=== PATIENT | female | born 1995 | race Caucasian/White ===

== ENCOUNTER 2020-10-03 12:30 | Outpatient (RCR) | payer OTHER, SELFPAY ==
--- NOTE | 2020-08-24 14:25 | PTOPEVAL ---
PHYSICAL THERAPY EVALUATION AND PLAN OF CARE 08-24-20 Thank you for referring Sarah Lee to [facility].? She is scheduled to be seen for therapy? 1 x/week for 5 weeks. Please review, sign, date and return this plan of care ASHLEE. I agree with and certify that the following plan of care is medically necessary. Referring Physician Date Referring Provider: Lyndsay Howell NP *PT Outpatient Evaluation Document 08/24/20 13:30 KIET (Rec: 08/24/20 14:25 KIET [id number]) Outpatient Past Medical History Past Medical History Source of Past Medical History Patient Neurological History Hx Neurological Disorders No Significant History Cardiovascular History Hx Cardiac Disorders No Significant History Respiratory History Hx Respiratory Disorders No Significant History Gastrointestinal History Hx Gastrointestinal Disorders No Significant History Musculoskeletal History Hx Other Musculoskeletal Disorders Yes: R knee pain in high school with basketball/lilian slaughters Endocrine History Hx Endocrine Disorders No Significant History HEENT History Hx HEENT Disorders No Significant History Evaluation Information Problem Diagnosis R knee pain Onset Jul 04, 2020 Subjective Information chronic knee problems, since Query Text:As Reported By Patient/ about 14 years old, increase Family knee pain with 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 job of 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 weight lifting; Diagnostic Tests X-Rays For This Problem No MRI For This Problem No Other Tests For This Problem No Previous Treatments Previous Treatments For This Problem no recent PT for knee--long time ago in high school Prior Level of Function Activity Level (Last 3 Months) 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
--- NOTE | 2020-08-31 12:39 | PCPTNOTE ---
Patient called & cancelled scheduled appointment this date due to having to work.
--- NOTE | 2020-09-09 11:23 | PCPTNOTE ---
Patient called & cancelled scheduled appointment this date due to covid 19 exposure.
--- NOTE | 2020-09-16 11:07 | PCPTNOTE ---
Patient called & cancelled scheduled appointment this date due to still waiting for covid results.
--- NOTE | 2020-10-03 13:25 | PTOPEVAL ---
PHYSICAL THERAPY DISCHARGE 10-03-20 Refer to the clinical summary below, for her status with today's reevaluation, compared to the initial evaluation. The goals were partially achieved; discharge PT services. Thank you for referring Sarah Lee to [facility].? Please review, sign, date and return this discharge ASHLEE. I agree with and certify that the following plan of care is medically necessary. Referring Physician Date Referring Provider: Lyndsay Howell NP Document 10/03/20 12:37 KIET (Rec: 10/03/20 13:25 KIET [id number]) Assessment Status Discharge Subjective Information Sarah reports: knee is about Query Text:As Reported By Patient/ the same, hurts mostly with Family squatting- with reps and weights; sitting- if can stretch knee out/ straighten it, can sit as long as want to , but if in car, with knee bent and cannot stretch it out , 15- 20 min with reposition self; have been doing the stretches and they are helping ; am trying to return to the fitness center- doing everything except squats; on leg days- do bar whatley of 115# at shoulder height and squatting 5 reps; with lunges , feel like do not have any control; Pain Assessment Timing of Pain Assessment Timing of Pain Assessment Assessment Pain Scale Pain Scale Used Numeric (1 - 10) Self Report Pain Assessment Right Knee(s) Reported Pain Level 0 Pain Frequency Chronic,Intermittent Other Pain Description tightness, pulling at distal quad tendon; Lowest Pain Intensity 0 Greatest Pain Intensity 3 Pain Aggravating Factors Exercise/Activity,Sitting Other Pain Aggravating Factors end of work day; sit tolerance 15-20 min Pain Score Pain Score 0: Self Report Additional Pain Score Comments discussed with pt use of ice and patellar tendon strap; leukotape strips over patella- educated pt on application and applied with medial pull; issued names of tape for her to purchase and use PRN; monitor skin; WOMAC score of 15% limitation. Interventions Used Interventions Used By Clinicians Education,Exer
== END 2020-10-04 08:29 | disposition home or self-care (01) ==
LOC: ANHPT 12:30
PROVIDERS: PCP Nurse Practitioner Adult Health; Referring Provider Nurse Practitioner Adult Health; Visit Provider Nurse Practitioner Adult Health
DX: M25.561 Pain in right knee (principal)
CPT/HCPCS: 97110; 97161

== ENCOUNTER 2021-07-15 21:46 | Emergency (ER) | payer OTHER, SELFPAY ==
--- NOTE | ~2021-07-15 | CT_ITS ---
EXAMINATION: CT brain wo con EXAM DATE: 07/15/2021 22:24 INDICATION: head injury . TECHNIQUE: Spiral CT of the head was performed without contrast. Axial, coronal and sagittal images were reviewed. The dose-length product (DLP) for this examination was 605.33 mGy-cm. The exposure w as tailored according to patient size, and iterative reconstruction (ASIR) was used as additional dos e reduction technique. There is no prior study for comparison. FINDINGS: There is no acute intraparenchymal hemorrhage. No evidence of intraparenchymal brain mass lesion. No evidence of acute infarction. There is no mass effect or midline shift. The ventricles are normal in size. There are no extra-axial collections. There are no acute calvarial fractures. T he orbits are unremarkable. Soft tissue is unremarkable. The visualized sinuses and mastoid air rachel ls are well aerated. IMPRESSION: 1. No acute intracranial findings. Reviewed, dictated and finalized at location A. ET SUPERVISOR
[2021-07-15 21:52] VITALS: BP 115/69; PULSE 75; RESP 16; TEMP 36.2; O2SAT 100
--- NOTE | 2021-07-15 22:12 | ED.HEATRA ---
HPI - Head Injury General Chief complaint: Head Injury Stated complaint: think i have a concussion Time Seen by Provider: 07/15/21 22:00 Source: patient and RN notes reviewed Mode of arrival: ambulatory Limitations: no limitations History of Present Illness HPI Narrative: This is a 25 year old female who presents for evaluation of a head injury. She reports she was snowboarding today and she fell. She states she was going fast and she fell pretty hard on the ice. She denies LOC but she has been having persistent right posterior head and frontal headache. Related Data Home Medications Medication Instructions Recorded Confirmed No Home Medications 07/15/21 07/15/21 Allergies Allergy/AdvReac Type Severity Reaction Status Date / Time No Known Allergies Allergy Verified 07/15/21 21:52 Review of Systems Review of Systems: All systems reviewed & are unremarkable except as noted in HPI and below Constitutional: Constitutional: Denies chills and Denies fever(s) Eyes: Eyes: Denies change in vision and Denies photophobia Neurologic: Reports headache(s), Denies focal weakness and Denies numbness PMFSH Past Medical History Medical History (Updated 07/16/21 @ 00:00 by Denisse Evans) Patient denies medical problems Surgical History Surgical History (Updated 07/15/21 @ 22:22 by Cayla Nettles MD) No pertinent past surgical history Exam Const: General: no acute distress and alert Orientation/consciousness: patient oriented x3 HENMT: Head: normocephalic and atraumatic Face and sinus: normal facial exam and face symmetric Eyes: Pupils: Equal, round and reactive pupils present EOM: EOMs intact bilaterally Neck: Neck: normal visual inspection Chest: Chest palpation & inspection: normal inspection of the chest Resp: Effort & Inspection: normal respiratory effort and no retractions Auscultation: clear to auscultation bilaterally Cardio: Rate: regular rate Rhythm: regular rhythm Heart sounds: no murmurs GI: GI Palp: Yes Soft to palpation, No Tenderness to palpation present (GI) and No Guarding due to palpation present (GI) Auscultation: normal bowel sounds Skin: General skin exam: normal color Rashes: no rashes Neuro: General: patient oriented x3 and moves all extremities Cranial nerves: Yes CN's II-XII intact bilaterally Psych: Mental Status: mental status grossly normal Affect: normal affect Course Reevaluation(s) Reevaluation #1: Patient got CT brain based on mechanism according to Anthony Ct rule. I discussed with patient CT unremarkable. She is stable for discharge. Date: 07/15/21 Time: 23:14 Vital Signs Vital signs: Vital Signs Temperature 97.1 F L 07/15/21 21:52 Pulse Rate 75 07/15/21 21:52 Respiratory Rate 16 07/15/21 21:52 Blood Pressure 115/69 07/15/21 21:52 Pulse Oximetry 100 07/15/21 21:52 Temperature 97.1 F L 07/15/21 21:52 Pulse Rate 75 07/15/21 21:52 Respiratory Rate 16 07/15/21 21:52 Blood Pressure 115/69 07/15/21 21:52 Pulse Oximetry 100 07/15/21 21:52 MDM - Head Injury Imaging Data Radiologist's impression: CT head- No acute intracranial process. No skull fracture Discharge Plan Discharge Clinical Impression: Closed head injury Patient Disposition: Home, Self-Care Condition: Stable Instructions: Antibiotic Form, Concussion (ED), Head Injury (ED) Additional Instructions: Today you CT was normal. Take tylenol or ibuprofen for your pain. Prescriptions: No Action No Home Medications RF: 0 Follow-up/Referrals: Nathaly,DELTA Umana [Primary Care Provider] - [facility] [place] Coma Scale Eyes: Open Verbal: Oriented and Alert Motor: Follows Commands Mariah Coma Total Score: 15
== END 2021-07-15 23:18 | disposition home or self-care (01) ==
PROVIDERS: Emergency Provider General Practice; PCP Nurse Practitioner Adult Health
DX: S09.90XA Unspecified injury of head, initial encounter (principal); V00.311A Fall from snowboard, initial encounter; Y93.23 Activity, snow (alpine) (downhill) skiing, snowboarding, sledding, tobogganing and snow tubing
CPT/HCPCS: 70450; 99284

== ENCOUNTER → 2023-05-15 12:59 | Outpatient (CLI) | payer OTHER, SELFPAY ==
--- NOTE | ~2023-05-15 | US_ITS ---
US breast LT complete DATE: 05/15/2023 13:23 INDICATION: Left breast lump for a couple of months TECHNIQUE: Real-time and color flow imaging of complete right breast including all 4 quadrants and chicas bareolar area COMPARISON: None FINDINGS: Anterior clinical complaint at 6:00 in the periareolar area there is no suspicious mass or shadowing. There are occasional simple cysts, the largest situated at 5:00 3 cm the nipple, measuring 3.6 x 6.9 x 5.7 mm. No suspicious mass or suspicious shadowing is detected. IMPRESSION: BI-RADS Category 2: Benign Reviewed, dictated and finalized at Location A. Reviewed, dictated and finalized at location A. GER OPERATIONS RESEARCH IMPRESSION: BI-RADS Category 2: Benign
== END ==
PROVIDERS: PCP Obstetrics & Gynecology Gynecology; Visit Provider Obstetrics & Gynecology Gynecology
DX: N63.20 Unspecified lump in the left breast, unspecified quadrant (principal); R92.8 Other abnormal and inconclusive findings on diagnostic imaging of breast
CPT/HCPCS: 76641

== ENCOUNTER 2024-11-24 09:13 | Outpatient (CLI) | payer OTHER, SELFPAY ==
--- OUTSIDE RECORDS SUMMARY | 2024-11-24 09:18 | XMS_ITS | Referral Summary ---
Author Organization [facility] Address [address] [place] [address] Care Team Providers Care Welfare Aide Name Role Phone Vivien Weinstein MD Unavailable [phone] Unknown, Notinfile Primary Care Provider Unavail able Allergies No known active allergies Medications Vestura, 28, 3-0.02 mg per tablet Take 1 tablet by mouth daily 07/03/2023 Active Active Problems Problem Noted Date Diagnosed Date Knee pain 06/01/2014 Social History Tobacco Use Types Packs/Day Years Used Date Smoking Tobacco: Never Tobacco Cessation:Counseling Given: Not Answered AUDIT-C Answer Date Recorded Q1: How often do you have a drink containing alcohol? Never 07/22/2023 Q2: How many drinks containi ng alcohol do you have on a typical day when you are drinking? Patient does not drink Q3: How often do you have si x or more drinks on one occasion? 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
--- OUTSIDE RECORDS SUMMARY | 2024-11-24 09:18 | XMS_ITS | Clinical Summary ---
Author Organization [facility] Address [address] [place] [address] Care Team Providers Care Company Miner [employer]asting Name Role Phone Vivien Weinstein MD Unavailable [phone] Unknown, Notinfile Primary Care Provider Unavail able Allergies No known active allergies Medications Vestura, 28, 3-0.02 mg per tablet Take 1 tablet by mouth daily 07/03/2023 Active Active Problems Problem Noted Date Diagnosed Date Knee pain 06/01/2014 Family History Medical History Relation Name Comments Pancreatic cancer Paternal Grandfather Relation Name Status Comments Paternal Grandfather Social History Tobacco Use Types Packs/Day Years [...] on file 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 Gender Identity Not on file Sexual Orientation Not on file Obstetrics History Last Filed Vital Signs Vital Sign Reading Time Taken Comments Blood Pressure - - Pulse - - Temperature - - Respiratory Rate - - Oxygen Saturation - - Inhaled Oxygen Concentration - - Weight 68.9 kg (152 lb) 07/22/2023 8:02 AM MANAGER WATER WASTEWATER Height 157.5 cm (5' 2) 07/22/2023 8:02 AM MANAGER WATER WASTEWATER Body Mass Index 27.8 07/22/2023 8:02 AM MANAGER WATER WASTEWATER Plan of Treatment Health Maintenance Due Date Last Done Comments Cervical Cancer Screening 1997 Depression Screening 1997 Hepatitis C Screening 1997 DTaP/Tdap/Td Vaccine (1 - Tdap) 2008 Varicella Vaccines (1 of 2 - 13+ 2-dose series) 2010 Hepatitis B Screening 09/24/2015 Regular Well Visit/Exam 18-64 09/24/2015 Influenza Vaccine (Season Ended) 2025 HPV Vaccines Aged Out No longer eligi ble based on patient's age to complete this topic Pneumococcal vaccine <65 Aged Out No longer eligible based on patient's age to complete this topic Insurance [facility] H[facility]/O Address: [facility] [id number] [place] [id number] [facility] Care Teams Company Miner Blasting Relationship Specialty Start Date End Date Unknown, Notinfile PCP - General 11/11/23 Vivien Weinstein MD [address] [facility] [address] [place], [place] [id number] Referring Physician Gynecology 10/03/23
[2024-11-24 19:38] LABS: Hematocrit 44.3 % (37.0-47.0); Hemoglobin 13.5 g/dL (12.0-15.0); Mean Corpuscular HGB Conc 30.5 g/dl (32-36); Mean Corpuscular Hemoglobin 28.0 pg (26-34); Mean Corpuscular Volume 91.9 fl (80-100); Platelet Count Result 317 k/mm3 (150-375); Red Blood Count 4.82 M/mm3 (4.2-5.4); White Blood Count 7.1 K/mm3 (4.5-10.0)
[2024-11-24 19:40] LABS: Alanine Aminotransferase 17 U/L (6-35); Albumin Level 4.4 g/dL (3.5-5.1); Alkaline Phosphatase 39 U/L (38-126); Anion Gap 9 mmol/L (4-12); Aspartate Amino Transferase 41 U/L (14-36); Bilirubin,Total 0.4 mg/dL (0.2-1.3); Blood Urea Nitrogen 14 mg/dL (7-17); Calcium 9.7 mg/dL (8.4-10.2); Carbon Dioxide 24 mmol/L (22-30); Chloride 105 mmol/L (98-107); Cholesterol 260 mg/dL (0-200); Estimated Glomerular Filt Rate > 60; Glucose 76 mg/dL (65-110); HDL Direct 59 mg/dL; Potassium 4.6 mmol/L (3.4-5.0); Sodium 138 mmol/L (137-145); Total Protein 7.7 g/dL (6.3-8.2); Triglycerides 112 mg/dL (<150)
[2024-11-24 20:09] LABS: Thyroid Stimulating Hormone 1.010 uIU/mL (0.465-4.680)
== END 2024-11-24 09:14 | disposition home or self-care (01) ==
LOC: ANHBWCLAB 09:15
PROVIDERS: PCP Nurse Practitioner Adult Health; Visit Provider Nurse Practitioner Adult Health
DX: Z13.9 Encounter for screening, unspecified (principal)
CPT/HCPCS: 36415; 80053; 80061; 84443; 85027

== ENCOUNTER 2024-12-17 10:19 | Outpatient (CLI) | payer OTHER, SELFPAY ==
--- NOTE | ~2024-12-17 | US_ITS ---
EXAMINATION: US soft tissue abdomen DATE: 12/17/2024 10:34 INDICATION: Intra-abdominal and pelvic swelling, mass or lump at the umbilicus TECHNIQUE: Multiple grayscale and Doppler ultrasound images of the umbilical region of concern were o btained. COMPARISON: None FINDINGS: There is a small widemouthed fat-containing umbilical hernia extending through a 1.6 cm diameter os a nd which measures approximately 1.4 cm AP. No herniated bowel. IMPRESSION: 1. Small fat-containing umbilical hernia. Reviewed, dictated and finalized at location A.
== END 2024-12-17 10:20 | disposition home or self-care (01) ==
LOC: MICIMG 10:20
PROVIDERS: PCP Nurse Practitioner Adult Health; Visit Provider Nurse Practitioner Adult Health
DX: R19.00 Intra-abdominal and pelvic swelling, mass and lump, unspecified site (principal); K42.9 Umbilical hernia without obstruction or gangrene
CPT/HCPCS: 76705

== ENCOUNTER 2025-01-06 16:33 | Outpatient (RCR) | payer OTHER, SELFPAY ==
--- OUTSIDE RECORDS SUMMARY | 2025-01-04 16:31 | XMS_ITS | Clinical Summary ---
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 Gender Identity Not on file Sexual Orientation Not on file Obstetrics History Last Filed Vital Signs Vital Sign Reading Time Taken Comments Blood Pressure - - Pulse - - Temperature - - Respiratory Rate - - Oxygen Saturation - - Inhaled Oxygen Concentration - - Weight 68.9 kg (152 lb) 07/22/2023 8:02 AM KETTLE OPERATOR Height 157.5 cm (5' 2) 07/22/2023 8:02 AM KETTLE OPERATOR Body Mass Index 27.8 07/22/2023 8:02 AM KETTLE OPERATOR Plan of Treatment Health Maintenance Due Date Last Done Comments Cervical Cancer Screening 1997 Depression Screening 1997 Hepatitis C Screening 1997 DTaP/Tdap/Td Vaccine (1 - Tdap) 2008 Varicella Vaccines (1 of 2 - 13+ 2-dose series) 2010 Hepatitis B Screening 09/24/2015 Regular Well Visit/Exam 18-64 09/24/2015 HPV Vaccines (1 - 3-dose SCD M series) 2024 Influenza Vaccine (#1) 2025 Pneumococcal vaccine <65 Aged Out No longer eligible based on patient's age to complete this topic Insurance [facility] Care Teams Hospice Executive Director Relationship Specialty Start Date End Date Unknown, Notinfile PCP - General 11/11/23 Vivien Weinstein MD [address] [facility] [address] [place], [place] [id number] Referring Physician Gynecology 10/03/23
== END 2025-04-04 23:59 | disposition home or self-care (01) ==
LOC: ANHLAB 16:33
PROVIDERS: PCP Nurse Practitioner Adult Health; Visit Provider Obstetrics & Gynecology Gynecology
DX: O26.851 Spotting complicating pregnancy, first trimester (principal); Z3A.00 Weeks of gestation of pregnancy not specified
CPT/HCPCS: 36415; 84702; 86850; 86900; 86901

== ENCOUNTER 2025-01-07 12:50 | Outpatient (CLI) | payer OTHER, SELFPAY ==
--- NOTE | ~2025-01-07 | US_ITS ---
EXAMINATION: US OB <=14 wk fetus w TV DATE: 01/07/2025 13:21 INDICATION: Vaginal spotting. Gestational dating. TECHNIQUE: Real-time transabdominal and transvaginal obstetric ultrasound. FINDINGS: Comparison to 12/17/2024 The uterus measures 8.3 x 5.9 x 5 cm. There is an intrauterine gestational sac, with pole identified. The crown rump length measures 0.29 cm, which correlates with a estimated gestational age of 5 weeks 6 days. heart tones are identified measuring 114 BPM. There is a subchorionic hemorrhage measuring 1.5 x 0.4 x 0.8 cm. Right ovary within normal limits. IMPRESSION: 1. SL IUP with an EGA of 5 weeks, 6 days (EDC by current ultrasound of 09/03/2025). 2: Small subchorionic hemorrhage. Reviewed, dictated and finalized at location O. IMPRESSION: 1. SL IUP with an EGA of 5 weeks, 6 days (EDC by current ultrasound of ). 2: Small subchorionic hemorrhage.
== END 2025-01-07 12:51 | disposition home or self-care (01) ==
PROVIDERS: PCP Nurse Practitioner Adult Health; Visit Provider Obstetrics & Gynecology Gynecology
DX: O26.851 Spotting complicating pregnancy, first trimester (principal); Z3A.00 Weeks of gestation of pregnancy not specified
CPT/HCPCS: 76801; 76817

== ENCOUNTER 2025-01-26 10:23 | Outpatient (CLI) | payer OTHER, SELFPAY ==
--- NOTE | ~2025-01-26 | US_ITS ---
EXAMINATION: US OB limited DATE: 01/26/2025 10:43 INDICATION: Follow-up subchorionic hematoma TECHNIQUE: Real-time transabdominal obstetric ultrasound. FINDINGS: Ultrasound dated 01/07/2025 The uterus measures 9.7 x 6.1 x 7.9 cm. There is an intrauterine gestational sac, with pole identified. The crown rump length measures 2.14 cm.. heart tones are identified measuring 185 BPM. There is a small residual subchorionic hemorrhage.. There is a small hypoechoic mass measuring 2.9 cm at the uterine fundus, consistent with a fibroid. IMPRESSION: 1. SL IUP with an EGA of 8 weeks, 4 days (EDC by initial ultrasound of 09/03/2025). 2: Small residual subchorionic hemorrhage. 3: Uterine fibroid measuring 2.9 cm.. Reviewed, dictated and finalized at location O. IMPRESSION: 1. SL IUP with an EGA of 8 weeks, 4 days (EDC by initial ultrasound of ). 2: Small residual subchorionic hemorrhage. 3: Uterine fibroid measuring 2.9 cm..
== END 2025-01-26 10:24 | disposition home or self-care (01) ==
LOC: MICIMG 10:24
PROVIDERS: PCP Nurse Practitioner Adult Health; Visit Provider Obstetrics & Gynecology Gynecology
DX: O36.8910 Maternal care for other specified fetal problems, first trimester, not applicable or unspecified (principal); Z3A.00 Weeks of gestation of pregnancy not specified; Z3A.08 8 weeks gestation of pregnancy; D25.9 Leiomyoma of uterus, unspecified; O46.91 Antepartum hemorrhage, unspecified, first trimester
CPT/HCPCS: 76815

== ENCOUNTER 2025-02-16 11:18 | Outpatient (CLI) | payer OTHER, SELFPAY ==
--- NOTE | ~2025-02-16 | US_ITS ---
EXAMINATION: US OB <= 14 weeks fetus DATE: 02/16/2025 11:32 INDICATION: Subchorionic hematoma during late first trimester TECHNIQUE: Real-time pelvic ultrasound utilizing transabdominal probe was performed. The interpreting radiologist was not present for the study. COMPARISON: 01/26/2025 FINDINGS: The uterus measures 11.7 x 2.4 x 6.8 cm. There is an intrauterine gestational sac. A yolk sac and pole are identified. The crown rump length measures 5.6 cm, which correlates with an estimated gestational age of 12 weeks and 1 days which is concordant within the range of measurement there is a previously estimated gestational age of 11 weeks and 4 days based upon ultrasound performed on 01/07/2025. heart motion is identified measuring 143 beats per minute (bpm) by M-mode Doppler. No significant change in a small hypoechoic subchorionic hematoma measuring 3.3 x 2.4 x 0.8 cm. The bilateral ovaries are not visualized. There is no free fluid in the pelvis. IMPRESSION: 1. Single living fetus with heart rate of 143 bpm. 2. No significant change in a small subchorionic hematoma.. Reviewed, dictated and finalized at location A.
== END 2025-02-16 11:19 | disposition home or self-care (01) ==
LOC: GOSHIMG 11:19
PROVIDERS: PCP Obstetrics & Gynecology Gynecology; Visit Provider Obstetrics & Gynecology Gynecology
DX: O36.8910 Maternal care for other specified fetal problems, first trimester, not applicable or unspecified (principal); Z3A.00 Weeks of gestation of pregnancy not specified
CPT/HCPCS: 76801

== ENCOUNTER 2025-03-23 08:24 | Outpatient (CLI) | payer OTHER, SELFPAY ==
--- NOTE | ~2025-03-23 | US_ITS ---
EXAM/PROCEDURE: US OB follow up HISTORY: Subchorionic Hematoma 2nd trimester COMPARISON: February 16 TECHNIQUE: Limited imaging of the known 17 weeks 1 day gestation. This included grayscale, color Doppler, and M-mode. FINDINGS: There has been interval appropriate growth. The heart rate is 159 bpm. There is been interval resolution of the small subchorionic hematoma. IMPRESSION: Interval appropriate growth. Interval resolution of small subchorionic hematoma. Reviewed, dictated and finalized at location A. OPERATIONS INTERN IMPRESSION: Interval appropriate growth. Interval resolution of small subchorionic hematoma .
== END 2025-03-23 08:25 | disposition home or self-care (01) ==
LOC: GOSHIMG 08:25
PROVIDERS: PCP Nurse Practitioner Adult Health; Visit Provider Obstetrics & Gynecology Gynecology
DX: O36.8920 Maternal care for other specified fetal problems, second trimester, not applicable or unspecified (principal); Z3A.00 Weeks of gestation of pregnancy not specified
CPT/HCPCS: 76816

== ENCOUNTER 2025-04-13 19:21 | Observation (INO) | payer OTHER, SELFPAY ==
[2025-04-13] VITALS (15 sets, daily range): BP systolic 103–107; BP diastolic 47–58; PULSE 65–93; TEMP 36.8; O2SAT 98–100; BMI 30.5
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
--- OUTSIDE RECORDS SUMMARY | 2025-04-13 19:28 | XMS_ITS | Clinical Summary ---
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 Care Teams Security Expert Relationship Specialty Start Date End Date Unknown, Notinfile PCP - General 11/11/23 Vivien Weinstein MD [address] [place] [address] [place], [place] [id number] Referring Physician Gynecology 10/03/23
--- NOTE | 2025-04-13 19:40 | OBADM ---
This patient, Sarah Neville, admitted to the OB room OB Post 117 for observation. Patient/family oriented to hospital policies and general routines including ID bracelet, bed and alarms, visiting hours, pain management, procedures, bathroom and other care routines, personal items, smoking policy, room service/diet, and visiting hours. Patient/Family are encouraged to report perceived risks to care and to ask questions if they do not understand what they are told or what they should do.
--- NOTE | 2025-04-13 20:12 | PC.NURSE ---
Called Dr. Weinstein, update on pt, dopple heart tones, no pain, vaginal bleeding, or uterine activity. Orders received to monitor uterine activity for thirty minutes and discharge if no cramping or vaginal bleeding with instructions to keep next scheduled appointment and when to return to the unit.
--- NOTE | 2025-04-13 20:48 | PC.NURSE ---
Pt discharged with instructions to keep next scheduled appointment and when to return to the unit, pt verbalizes understanding.
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
== END 2025-04-13 20:48 | disposition home or self-care (01) ==
PROVIDERS: Admitting Provider Obstetrics & Gynecology Gynecology; PCP Nurse Practitioner Adult Health; Visit Provider Obstetrics & Gynecology Gynecology
DX: O9A.212 Injury, poisoning and certain other consequences of external causes complicating pregnancy, second trimester (principal); Z3A.19 19 weeks gestation of pregnancy; V89.2XXA Person injured in unspecified motor-vehicle accident, traffic, initial encounter
CPT/HCPCS: G0378; G0379